=== PATIENT | male | born 1995 ===

== ENCOUNTER 2022-03-29 15:51 | Emergency (ER) | payer OTHER ==
[2022-03-29 16:05] VITALS: BP 125/83; PULSE 91; O2SAT 98
[2022-03-29] MEDS ORDERED: MORPHINE SULFATE 4 MG INJ IM ONE (16:30)
--- NOTE | 2022-03-29 17:18 | XRAY ---
Exam: CT of the thoracic spine without IV contrast from 03/29/2022. CTDI: 13.90 mGy Comparison: CT of the thoracic spine without IV contrast from 03/20/2022. Indication: Patient has started experiencing burning across the shoulder blades with tingling into his arms for 2 days, becoming worse today. The patient has known minimally displaced fractures of the T3 and T4 spinous processes. Technique: Non-IV contrast axial images were obtained through the thoracic spine. Reconstructed coronal and sagittal images were created and reviewed. The images were filmed using the sharp bone window filter. Findings: I again see a minimally displaced fractures of the T3 and T4 spinous processes. This is noted on axial image #34 and axial image #45. Bone position and alignment appear unremarkable. These fractures appear to be stable. I see no new thoracic spine fracture or AP traumatic subluxation. The thoracic canal appears of normal size. The neural foramen are patent throughout the thoracic spine. The facet joints appear unremarkable. Assessment of the thoracic discs is limited, but no definite thoracic disc herniation is seen on this study. The thoracic interspaces are well-maintained. I again see note some granulomatous calcifications anterior to the origin of the right mainstem bronchus, the anterior aspect of the right hilum, and the subcarinal region. Again, the thoracic aorta appears of normal size. Impression: 1. I again note stable minimally displaced fractures of the spinous processes of both T3 and T4. There has been no change in position or alignment. 2. No new thoracic spine fracture or AP subluxation is seen. 3. 

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
== END 2022-03-29 18:15 | disposition home or self-care (01) ==
LOC: ED 15:51
DX: S22.039A Unspecified fracture of third thoracic vertebra, initial encounter for closed fracture (principal); S22.049A Unspecified fracture of fourth thoracic vertebra, initial encounter for closed fracture; M54.6 Pain in thoracic spine; R20.2 Paresthesia of skin; Z79.891 Long term (current) use of opiate analgesic; Z28.310 Unvaccinated for COVID-19
CPT/HCPCS: 72128; 96372; 99283; J2270